=== PATIENT | female | born 1995 | race Native Hawaiian/Other Pacific Islander ===

== ENCOUNTER 2017-09-07 11:51 | Emergency (ER) | payer OTHER ==
[~2017-09-07] VITALS: Ht 172.7 cm; Wt 72.6 kg
[2017-09-07] MEDS: AMOXICILLIN-CLAVUL 875-125MG TABLET PO ONE (13:31)
[2017-09-07] MEDS: IBUPROFEN 600 MG TABLET PO ONE (13:31)
[2017-09-07] MEDS: BACITRACIN/POLYMYXIN B OINT 15 GM TUBE TOP ONE (13:31)
--- NOTE | 2017-09-07 13:33 | NUR ---
Patient discharged to home in stable conditon. Written and verbal after care instructions given. Patient verbalizes understanding of instructions.
[2017-09-07] MEDS ORDERED: IBUPROFEN 600 MG TABLET ONE (13:45)
[2017-09-07] MEDS ORDERED: NEOMY/BACITRA/POLYMYXIN B OINT UD PACKET TP ONE ×2 (13:45)
[2017-09-07] MEDS ORDERED: AMOXICILLIN-CLAVUL 875-125MG TABLET ONE (13:45)
== END 2017-09-07 13:33 | disposition home or self-care (01) ==
LOC: ER 11:51
DX: S51.831A Puncture wound without foreign body of right forearm, initial encounter (principal); W55.01XA Bitten by cat, initial encounter; Y92.89 Other specified places as the place of occurrence of the external cause; Y93.89 Activity, other specified; Y99.8 Other external cause status
CPT/HCPCS: A4663